=== PATIENT | male | born 1985 | race Caucasian/White ===

== ENCOUNTER 2018-08-27 14:37 | Emergency (ER) | payer MEDICAID ==
[2018-08-27 14:47] VITALS: BP 115/75
[2018-08-27] MEDS ORDERED: PROPARACAINE 0.5% 15 ML OPHT DROP OP ONE (15:12)
[2018-08-27] MEDS ORDERED: FLUORESCEIN SODIUM 1 MG STRIP OP ONE (15:16)
--- NOTE | 2018-08-27 15:25 | EDPHY ---
H & P Time Seen by Provider: 08/27/18 15:11 HPI/ROS: CHIEF COMPLAINT: Right eye pain and foreign body sensation HISTORY OF PRESENT ILLNESS: Difficulty with contact lens at around 8:00 a.m. Today, ventrally got out but reports continued pain foreign body sensation in the upper outer right eye since then. No change in vision. No discharge. REVIEW OF SYSTEMS: No fever or chills. No double vision. PAST MEDICAL HISTORY: Ophthalmological negative, no diabetes Social history: Nonsmoker General Appearance: Alert, no distress. Visual acuity: noted from nursing notes. 20/20 in each eye. Lids and Lashes: No edema, no stye, no erythema. Conjunctivae: Not injected, no exudate. Sclera: No subconjunctival hemorrhage, no icterus. Pupils: Equal and round, normally reactive. Corneas: Right examined with fluoroscein, uptake seen with slitlamp just above the pupil and laterally.Negative Roxanne test with fluoroscein. No foreign body on surface of cornea. Anterior chamber: normal, no hyphema or hypopyon. External: No proptosis, no periorbital swelling or redness or tenderness. EOMI. Emergency Department course/MDM: Likely corneal abrasion to contact trauma. No contacts, is wearing glasses now , normal vision. Ocuflox eyedrops, ophthalmology recheck in 48 hr. Warned no contact lenses until full healing. Does not appear to have globe injury or retained foreign body or corneal ulcer. Smoking Status: Never smoked Constitutional: Initial Vital Signs Temperature (C) 36.8 C 08/27/18 14:44 Heart Rate 96 08/27/18 14:44 Respiratory Rate 18 08/27/18 14:44 Blood Pressure 115/75 08/27/18 14:44 O2 Sat (%) 92 08/27/18 14:44 O2 Delivery Mode Room Air Allergies/Adverse Reactions: No Known Allergies Allergy (Unverified 08/27/18 14:43) Home Medications: Medication Instructions Recorded Ofloxacin 0.3% [Ocuflox 0.3%] 1 drops QID #1 opht.btl 08/27/18 Prozac 10 MG (*) 08/27/18 Vyvanse 08/27/18 Departure - Departure Disposition: Home, Routine, Self-Care Clinical Impression: Corneal abrasion Qualifiers: Encounter type: initial encounter Laterality: right Qualified Code(s): S05.01XA - Injury of conjunctiva and corneal abrasion without foreign body, right eye, initial encounter Condition: Good Instructions: Corneal Abrasion (ED) Additional Instructions: Return if you get worsening or severe pain or any decrease in your vision. Follow-up with referral customer professional in 2 days. No contact lenses until complete healing. Referrals: Luis Ramey MD [Medical Doctor] - 1-2 days without fail Prescriptions: Ofloxacin 0.3% [Ocuflox 0.3%] 1 drops QID #1 opht.btl
== END 2018-08-27 15:40 | disposition home or self-care (01) ==
DX: S05.01XA Injury of conjunctiva and corneal abrasion without foreign body, right eye, initial encounter (principal)